=== PATIENT | male | born 1985 | race Caucasian/White ===

== ENCOUNTER 2020-12-31 11:30 | Emergency (ER) | payer SELFPAY ==
[~2020-12-31] VITALS: Ht 175.3 cm; Wt 91.0 kg
[2020-12-31] MEDS ORDERED: ONDANSETRON HCL 4MG/2ML INJ IV ONE (12:00)
[2020-12-31] MEDS ORDERED: SODIUM CHLORIDE 0.9% 1,000 ML IV ONE (12:00)
[2020-12-31] MEDS ORDERED: DIPHENHYDRAMINE 50MG/ML VIAL IV ONE (12:00)
[2020-12-31] MEDS ORDERED: METHYLPREDNISOLONE SOD SUCC 125 MG/2 ML VIAL IV ONE (12:00)
[2020-12-31] MEDS ORDERED: EPINEPHRINE 1:1000 1 MG/ML AMP INJ ONE (12:15)
[2020-12-31] MEDS ORDERED: EPIN0.3P3 IM (15:09)
[2020-12-31] MEDS ORDERED: B50 MT (15:10)
[2020-12-31] MEDS ORDERED: P50 MT (15:10)
[2020-12-31 15:47] VITALS: BP 151/86
== END 2020-12-31 15:49 | disposition home or self-care (01) ==
LOC: ER 11:30
DX: T78.40XA Allergy, unspecified, initial encounter (principal); R22.0 Localized swelling, mass and lump, head; R21 Rash and other nonspecific skin eruption; R06.02 Shortness of breath; X58.XXXA Exposure to other specified factors, initial encounter
CPT/HCPCS: 96361; 96374; 96375; 99284; J1200; J2405; J2930; J3490; J7030